=== PATIENT | female | born 1975 | race Caucasian/White ===

== ENCOUNTER 2019-07-15 07:04 | Day surgery (SDC) | payer OTHER ==
[~2019-07-15] VITALS: Ht 172.7 cm; Wt 96.4 kg
[2019-07-15] VITALS (10 sets, daily range): BP systolic 98–129; BP diastolic 55–84; PULSE 47–69; TEMP 97.4–98.7
[2019-07-15] MEDS ORDERED: TRULICITY1.5 MG/0.5 SQ (07:59)
[2019-07-15] MEDS ORDERED: ZOLOFT 100MG100 MG PO (07:59)
--- NOTE | 2019-07-15 08:00 | NUR ---
AFTER TAKING PRE OP MEDS PATIENT C/O FEELING NAUSEATED.
--- NOTE | 2019-07-15 08:01 | NUR ---
TO RM [id number] [id number] CALL LIGHT IN REACH FRIEND SAMANTHA AT BEDSIDE.
--- NOTE | 2019-07-15 10:33 | NUR ---
DR PHELAN INTO TALK WITH PATIENT AND CONFIRMED SURGERY A TOTAL HYSTERECTOMY. PATIENT VERBALIZED AGREEMENT AND INITIALED CONSENT.
--- NOTE | 2019-07-15 10:34 | NUR ---
STEPHANIE BROKE BEATER INTO TALK WITH PATIENT AT THIS TIME.
--- NOTE | 2019-07-15 10:51 | NUR ---
Initial visit; Patient and family thanked Tc Operator for offering spiritual care prior to her surgical procedure.
[2019-07-16 00:20] VITALS: BP 106/43; PULSE 58; TEMP 98.8
[2019-07-16 04:50] VITALS: BP 101/50; PULSE 60; TEMP 98.1
[2019-07-16] MEDS ORDERED: IBU600 MG PO (05:56)
[2019-07-16] MEDS ORDERED: PERCOCET 325 MG1 TA2 PO (05:57)
[2019-07-16 07:07] LABS: HEMOGLOBIN 11.9 g/dl (12.5-16.0)
[2019-07-16 07:16] LABS: HEMATOCRIT 35.4 % (37.0-47.0)
[2019-07-16 08:11] VITALS: BP 124/72; PULSE 78; TEMP 98.1
[2019-07-16] MEDS ORDERED: MINIVELL TD (09:22)
--- NOTE | 2019-07-16 10:57 | NUR ---
Follow-up visit; Patient thanked Finish Filer for looking in on her and offering God's blessings.
== END 2019-07-16 11:00 | disposition home or self-care (01) ==
LOC: SDCO 07:04 → OB 13:25 → SDCO 07-16 11:00
PROVIDERS: Obstetrics & Gynecology
DX: N87.0 Mild cervical dysplasia (principal); D26.1 Other benign neoplasm of corpus uteri; N83.8 Other noninflammatory disorders of ovary, fallopian tube and broad ligament; N83.02 Follicular cyst of left ovary; N83.01 Follicular cyst of right ovary; N92.0 Excessive and frequent menstruation with regular cycle; N94.6 Dysmenorrhea, unspecified; N94.10 Unspecified dyspareunia; Z98.891 History of uterine scar from previous surgery; E11.9 Type 2 diabetes mellitus without complications; F32.9 Major depressive disorder, single episode, unspecified; Z83.3 Family history of diabetes mellitus; Z82.49 Family history of ischemic heart disease and other diseases of the circulatory system; Z83.6 Family history of other diseases of the respiratory system
CPT/HCPCS: OP; J1885; J2405; J2704; J2710; J3010; J7120